=== PATIENT | female | born 1995 | race Native Hawaiian/Other Pacific Islander ===

== ENCOUNTER 2019-04-12 11:04 | Outpatient (CLI) | payer MEDICAID ==
[2019-04-12 11:33] VITALS: BP 106/59
[2019-04-12] MEDS ORDERED: LACTATED RINGERS 1,000 ML IV SCH (12:00)
[2019-04-12 12:28] LABS: Bacteria,Urine 2+ /HPF (Negative); Bilirubin,Urine NEG (Negative); Blood,Urine NEG (Negative); Color,Urine Straw (Yellow); Protein,Urine <15 mg/dL mg/dL (Negative); Urobilinogen,Urine < 2.0 mg/dL (<2.0)
--- NOTE | 2019-04-12 14:17 | Ultrasound Report ---
Biophysical profile INDICATION: well-being COMPARISON: None FINDINGS: breathing movement: 2/2 movement: 2/2 posture and tone: 2/2 Qualitative amniotic fluid volume: 2/2 The fetus is in a transverse presentation with head on maternal right. IMPRESSION: Total score for biophysical profile is 8/8 heart rate is 143 bpm Signer Name: Sixto Garcia MD Signed: 04/12/2019 2:13 PM Workstation Name: [id number]
== END 2019-04-12 14:30 | disposition home or self-care (01) ==
LOC: TRG 11:04
PROVIDERS: ATTEND Obstetrics & Gynecology
DX: O47.02 False labor before 37 completed weeks of gestation, second trimester (principal); Z3A.28 28 weeks gestation of pregnancy
CPT/HCPCS: 59025; 76819; 81001